=== PATIENT | male | born 1990 | race Caucasian/White ===

== ENCOUNTER 2020-10-17 17:28 | Emergency (ER) | payer MEDICAID, OTHER ==
[~2020-10-17] VITALS: Ht 175.3 cm; Wt 63.0 kg
[2020-10-17 17:58] VITALS: BP 115/72
[2020-10-17 18:59] LABS: CLARITY,URINE CLEAR (Clear); COLOR,URINE YELLOW (Yellow); GLUCOSE, URINE NEGATIVE (Neg); KETONES,URINE TRACE mg/dl (Neg); LEUKOCYTE ESTERASE ,URINE TRACE (Neg); NITRITES, URINE NEGATIVE (Neg); OCCULT BLOOD,URINE NEGATIVE (Neg); PH,URINE 6.5 (4.8-8.0); PROTEIN,URINE 30 mg/dl (Neg)
[2020-10-17 19:09] LABS: UA COLLECTION TYPE CLN CATCH MIDSTREAM
[2020-10-17 19:10] LABS: BACTERIA,URINE NONE SEEN /HPF (Neg); RBC,URINE NONE SEEN /HPF (0-2); WBC,URINE 0-4 /HPF (0-4)
[2020-10-17 19:11] LABS: MUCUS STRANDS MODERATE /LPF (Neg); SQUAMOUS EPITHELIAL CELL,UR FEW /LPF (FEW)
== END 2020-10-17 21:35 | disposition left against medical advice (07) ==
LOC: ER 17:28
DX: N48.89 Other specified disorders of penis (principal); Z53.21 Procedure and treatment not carried out due to patient leaving prior to being seen by health care provider
CPT/HCPCS: 81001; 87088

== ENCOUNTER 2020-10-17 21:45 | Emergency (ER) | payer MEDICAID ==
[~2020-10-17] VITALS: Ht 175.3 cm; Wt 70.0 kg
[2020-10-17 22:05] VITALS: BP 132/75
== END 2020-10-18 02:53 | disposition left against medical advice (07) ==
LOC: ER 21:46
DX: N48.29 Other inflammatory disorders of penis (principal); Z53.21 Procedure and treatment not carried out due to patient leaving prior to being seen by health care provider

== ENCOUNTER 2020-10-18 14:55 | Emergency (ER) | payer MEDICAID ==
[~2020-10-18] VITALS: Ht 175.3 cm; Wt 51.6 kg
[2020-10-18 15:08] VITALS: BP 107/59
[2020-10-18] MEDS ORDERED: CefTRIAXone 1000mg IM Kit (w/lidocaine diluent) IM STA (16:59)
[2020-10-18] MEDS ORDERED: azithromycin 250mg tablet PO ONE (17:00)
[2020-10-18 18:48] LABS: CLARITY,URINE SLIGHTLY CLOUDY (Clear); COLOR,URINE AMBER (Yellow); GLUCOSE, URINE NEGATIVE (Neg); KETONES,URINE 40 mg/dl (Neg); LEUKOCYTE ESTERASE ,URINE NEGATIVE (Neg); NITRITES, URINE NEGATIVE (Neg); OCCULT BLOOD,URINE NEGATIVE (Neg); PROTEIN,URINE TRACE mg/dl (Neg); UROBILINOGEN,URINE >=8.0 E.U/dL (0.2-1.0)
[2020-10-18 18:56] LABS: UA COLLECTION TYPE VOIDED
[2020-10-18 19:06] LABS: BACTERIA,URINE NONE SEEN /HPF (Neg); MUCUS STRANDS MODERATE /LPF (Neg); RBC,URINE NONE SEEN /HPF (0-2); SQUAMOUS EPITHELIAL CELL,UR FEW /LPF (FEW); WBC,URINE 0-4 /HPF (0-4)
== END 2020-10-18 17:39 | disposition home or self-care (01) ==
LOC: ER 14:57
DX: L25.9 Unspecified contact dermatitis, unspecified cause (principal); F12.90 Cannabis use, unspecified, uncomplicated; F15.90 Other stimulant use, unspecified, uncomplicated; Z72.89 Other problems related to lifestyle; Z56.0 Unemployment, unspecified; Z88.5 Allergy status to narcotic agent
CPT/HCPCS: 36415; 81001; 87491; 87591; 96372; 99283; J0696

== ENCOUNTER 2021-06-29 19:43 | Emergency (ER) | payer MEDICAID ==
[~2021-06-29] VITALS: Ht 167.6 cm; Wt 65.9 kg
--- NOTE | 2021-06-29 20:55 | NUR ---
Pt pink, alert. Bed in lowest position, wheels locked, rail 2/2 up. Will continue to monitor pt for acute changes and needs. Pt laying supine, able to reposition self prn.
[2021-06-29] MEDS ORDERED: amox tr/potassium clavulanate 875/125mg TAB PO ONE (22:25)
[2021-06-29] MEDS ORDERED: bacitracin 15gm ointment TP ONE (22:25)
[2021-06-29] MEDS ORDERED: acetaminophen 325mg tablet PO ONE (22:25)
[2021-06-29] MEDS ORDERED: ondansetron 4mg rapidly disintigrating tab PO ONE (22:25)
[2021-06-29] MEDS ORDERED: AMOX-419 PO (22:28)
[2021-06-29 22:43] VITALS: BP 124/82
== END 2021-06-29 22:45 ==
LOC: ER 19:43
DX: S51.031A Puncture wound without foreign body of right elbow, initial encounter (principal); F12.90 Cannabis use, unspecified, uncomplicated; F15.90 Other stimulant use, unspecified, uncomplicated; Z56.0 Unemployment, unspecified; Z88.5 Allergy status to narcotic agent; Z79.2 Long term (current) use of antibiotics; Z72.89 Other problems related to lifestyle; W54.0XXA Bitten by dog, initial encounter; Y93.89 Activity, other specified; Y92.89 Other specified places as the place of occurrence of the external cause; Y99.8 Other external cause status
CPT/HCPCS: 73080; 99284

== ENCOUNTER → 2021-10-12 | Emergency (ER) | payer MEDICAID, OTHER ==
[~2021-10-12] VITALS: Ht 175.3 cm; Wt 68.0 kg
[~2021-10-12] MED LIST: ondansetron 4mg rapidly disintigrating tab PO ONE
[2021-10-12 10:59] VITALS: BP 137/96
== END | disposition home or self-care (01) ==
LOC: EEVIPCON 07:49 → ER 07:49
DX: S02.40FA Zygomatic fracture, left side, initial encounter for closed fracture (principal); F12.10 Cannabis abuse, uncomplicated; F15.10 Other stimulant abuse, uncomplicated; Z56.0 Unemployment, unspecified; Z88.5 Allergy status to narcotic agent
CPT/HCPCS: 70450; 70486; 72125; 99284; L0172

== ENCOUNTER 2024-04-17 10:31 | Emergency (ER) | payer MEDICAID, OTHER ==
[~2024-04-17] VITALS: Ht 175.3 cm; Wt 77.5 kg
[2024-04-17 11:04] LABS: BILIRUBIN,URINE NEGATIVE (Neg); CLARITY,URINE CLEAR (Clear); COLOR,URINE YELLOW (Yellow); GLUCOSE, URINE NEGATIVE (Neg); KETONES,URINE TRACE mg/dl (Neg); LEUKOCYTE ESTERASE ,URINE NEGATIVE (Neg); NITRITES, URINE NEGATIVE (Neg); OCCULT BLOOD,URINE NEGATIVE (Neg); PROTEIN,URINE NEGATIVE (Neg)
[2024-04-17 11:12] LABS: UA COLLECTION TYPE CLN CATCH MIDSTREAM
[2024-04-17 11:40] LABS: BASOPHILS % (AUTO) 0.3 % (0-1); EOSINOPHILS % (AUTO) 0.5 % (0-6); HEMOGLOBIN 14.9 g/dl (14.0-17.9); LYMPHOCYTES # (AUTO) 1.4 X10'3 (1.1-4.8); LYMPHOCYTES % (AUTO) 34.9 % (21-51); MEAN CORPUSCULAR HEMOGLOBIN 30.3 PG (27.0-31.0); MEAN CORPUSCULAR HGB CONC 34.6 g/dL (33.0-36.5); MEAN CORPUSCULAR VOLUME 87.4 FL (78-98); MEAN PLATELET VOLUME 7.2 FL (7.4-10.4); MONOCYTES # (AUTO) 0.3 X10'3 (0-0.9); MONOCYTES % (AUTO) 6.5 % (2-12); NEUTROPHILS # (AUTO) 2.2 X10'3 (1.8-7.7); NEUTROPHILS % (AUTO) 57.8 % (42-75); PLATELET COUNT 318 X10'3 (140-440); RED BLOOD COUNT 4.92 X10'6 (4.70-6.10); RED CELL DISTRIBUTION WIDTH 12.9 % (11.5-14.5); WHITE BLOOD COUNT 3.9 X10'3 (4.5-11.0)
[2024-04-17 11:54] LABS: ALANINE AMINOTRANSFERASE 28 U/L (12-78); ALBUMIN 4.5 G/DL (3.4-5.0); ALBUMIN/GLOBULIN RATIO 1.1 (1.1-1.5); ALKALINE PHOSPHATASE 128 IU/L (46-116); ANION GAP 6 (8-16); ASPARTATE AMINO TRANSFERASE 12 U/L (10-37); BILIRUBIN,TOTAL 0.7 MG/DL (0.1-1.0); BLOOD UREA NITROGEN 19 MG/DL (7-18); BUN/CREATININE RATIO 27.5 (10.0-20.0); CALCIUM 9.4 MG/DL (8.5-10.1); CHLORIDE 103 MMOL/L (99-107); CREATININE 0.69 MG/DL (0.60-1.10); GLUCOSE 117 MG/DL (70-104); LIPASE 18 U/L (16-77); POTASSIUM 3.6 MMOL/L (3.5-5.1); SODIUM 141 MMOL/L (135-145); TOTAL CARBON DIOXIDE 32.5 MMOL/L (24-32); TOTAL PROTEIN 8.5 G/DL (6.4-8.2); eCRCL 154 ML/MIN; eGFR > 90 ML/MIN
[2024-04-17] MEDS: ondansetron 4mg rapidly disintigrating tab PO ONE (11:58)
[2024-04-17] MEDS ORDERED: ONDA-103 PO (13:02)
[2024-04-17 13:12] VITALS: BP 137/80; PULSE 69; RESP 15; TEMP 97.9; O2SAT 97
== END 2024-04-17 13:16 | disposition home or self-care (01) ==
LOC: ER 10:31
DX: R11.2 Nausea with vomiting, unspecified (principal); F12.90 Cannabis use, unspecified, uncomplicated; F15.90 Other stimulant use, unspecified, uncomplicated; Z72.89 Other problems related to lifestyle; Z56.0 Unemployment, unspecified; Z88.5 Allergy status to narcotic agent
CPT/HCPCS: 36415; 80053; 81003; 83690; 85025; 99283

== ENCOUNTER 2024-08-10 14:38 | Emergency (ER) | payer MEDICAID ==
[~2024-08-10] VITALS: Ht 175.3 cm; Wt 68.2 kg
[~2024-08-10 14:38] MED LIST changes: +ONDA-103 PO; -ondansetron 4mg rapidly disintigrating tab PO ONE
--- NOTE | 2024-08-10 14:58 | Physician Documentation ---
History of Present Illness ~ Chief Complaint: Bite-insect Stated Complaint: HAND INFECTION Time Seen by MD: 16:00 Primary Medical Doctor: NONE HPI Adult male presents to the ED with a complaint of some sort of insect bite since 11:00 a.m. today. Patient states the swelling of his left hand seems to be getting worse and increased pain and patient now has some nausea but no vomiting or diarrhea or abdominal pain. Patient denies fevers or chills. Patient has no other concern or complaint at this time. Tetanus within 5 years?: Yes Medication Reconciliation Allergies: Coded Allergies: morphine (Unverified Allergy, Unknown, 11/06/16) Scheduled Sulfamethoxazole/Trimethoprim (Bactrim Ds Tablet), 1 TAB PO Q12H Scheduled PRN Ondansetron HCl (Ondansetron HCl), 1 TAB PO TID PRN for nausea/vomiting Past Medical History Past Medical History: No Pertinent History, *MUSCULOSKELETAL* Past Surgical History: no surgical history Alcohol Use: Occasionally Drug Use: marijuana, methamphetamine Lives with: Spouse Lives In: Home Occupation: unemployed Review of Systems Constitutional: Denies: chills, fever, weakness Eyes: Denies: pain, blurred vision ENT: Denies: ear pain, nose pain, throat pain, mouth pain Respiratory: Denies: cough, shortness of breath Cardiovascular: Denies: chest pain, palpitations Gastrointestinal: Denies: abdominal pain, nausea, vomiting Genitourinary: Denies: burning, dysuria Male Genitalia: Denies: penile discharge, testicular pain Neurological: Denies: headache, dizziness Musculoskeletal: Denies: pain, swelling Integumentary: Denies: rash, lesions Allergic/Immunologic: Denies: hives, itching Hematologic/Lymphatic: Denies: no symptoms reported Psychiatric: Denies: depression, anxiety Physical Exam Vital Signs: Temperature: 99.3, Heart Rate: 100, Respiratory Rate: 17, BP: 132/77, Pulse Oximetry: 99, Weight: 68.180 Oxygen Flow Rate: 0 Physical Exam General: Awake and Alert, no acute distress. HEENT: Conjunctiva pink, Sclera clear, Mucus Membranes moist. Neck: Supple without masses and tenderness. Resp: Unlabored. Lungs clear to auscultation bilaterally. Heart: Regular Rate and rhythm, normal S1 and S2 without murmur, rub or gallop. Musculoskeletal: Patient on exam does have swelling of the dorsum of his left hand with a small pustule over the 2nd MCP joint. Patient has significant tenderness to palpation surrounding the dorsum of the left hand. I do not appreciate any red streaking up his left arm currently. There is no significant purulent drainage from pustule over left 2nd MCP joint. Motor function is intact, patient is neurovascularly intact distally of the left upper extremity. Extremities: No cyanosis,clubbing or edema. Skin: Warm and Dry. Progress Results/Orders Results/Orders Completed Orders - KELSEY MOHR Ketorolac Trometh 30mg/Ml Vial (Toradol (08/10/24 16:31) Sulfamethox/Trimetho. Ds Tab (Septra Ds (08/10/24 16:31) Medications Received in ER Medications (Trade) Dose Ordered Sig/Viktoria Route PRN Reason Start Time Stop Time Status Last Admin Dose Admin (Toradol inj. 30mg/ml) 30 mg ONCE STAT IM 08/10/24 16:31 08/10/24 16:36 DC 08/10/24 16:44 30 MG (Septra DS tab) 1 tab ONCE STAT PO 08/10/24 16:31 08/10/24 16:36 DC 08/10/24 16:45 1 TAB Vital Signs 08/10/24 08/10/24 14:49 16:48 Temp 99.3 103.1 Pulse 100 110 Resp 17 22 B/P (MAP) 132/77 130/79 (96) Pulse Ox 99 97 O2 Flow Rate 0 0 Laboratory Tests Test 08/10/24 16:36 White Blood Count 14.9 H Red Blood Count 4.63 L Hemoglobin 14.0 Hematocrit 40.9 L Mean Corpuscular Volume 88.4 Mean Corpuscular Hemoglobin 30.2 Mean Corpuscular Hemoglobin Concent 34.2 Red Cell Distribution Width 14.0 Platelet Count 432 Mean Platelet Volume 6.5 L Neutrophils (%) (Auto) 86.1 H Lymphocytes (%) (Auto) 6.6 L Monocytes (%) (Auto) 7.0 Eosinophils (%) (Auto) 0.1 Basophils (%) (Auto) 0.2 Neutrophils # (Auto) 12.8 H Lymphocytes # (Auto) 1.0 L Monocytes # (Auto) 1.0 H Eosinophils # (Auto) 0.0 Basophils # (Auto) 0.0 CBC Comment Sodium Level 134 L Potassium Level 3.6 Chloride Level 100 Carbon Dioxide Level 22.5 L Anion Gap 12 Blood Urea Nitrogen 19 H Creatinine 0.68 Estimated GFR/1.73 m2 > 90 BUN/Creatinine Ratio 27.9 H Glucose Level 99 Lactic Acid Level 1.1 Calcium Level 8.7 Albumin 3.7 Procalcitonin < 0.05 Chemistry Comments Medical Decision Making Findings Adult male presents to the ED with a complaint of some sort of insect bite since 11:00 a.m. today. Patient states the swelling of his left hand seems to be ge tting worse and increased pain and patient now has some nausea but no vomiting or diarrhea or abdominal pain. Patient denies fevers or chills. Patient has no other concern or complaint at this time. Patient's labs did indicate elevated white count, but were otherwise largely unremarkable with lactic acid level being within normal limits. Toradol 30 mg IM administered in the ED tonight along with Bactrim DS one tab by mouth given in ED tonight. Prescription of Bactrim sent to patient pharmacy [facility] [address] just a few minute walk from the hospital. Patient voiced understanding. Patient will take antibiotic as prescribed. Patient will follow up in two days for wound check. Return to ED with any worsening, concerning or changing symptoms. Departure Disposition: 01 HOME / SELF CARE / HOMELESS Impression: Primary Impression: Cellulitis Qualified Codes: L03.114 - Cellulitis of left upper limb Discharge Instructions: Cellulitis, Adult Additional Instructions: Patient's labs did indicate elevated white count, but were otherwise largely unremarkable with lactic acid level being within normal limits. Toradol 30 mg IM administered in the ED tonight along with Bactrim DS one tab by mouth given in ED tonight. Prescription of Bactrim sent to patient pharmacy [facility] [address] just a few minute walk from the hospital. Patient voiced understanding. Patient will take antibiotic as prescribed. Patient will follow up in two days for wound check. Return to ED with any worsening, concerning or changing symptoms. Referrals: NO PRIMARY CARE PROVIDER (PCP) Prescriptions Sulfamethoxazole/Trimethoprim (Bactrim Ds Tablet) 800 Mg-160 Mg Tablet 1 TAB PO Q12H for 10 Days, #20 TAB Prov: KELSEY MOHR 08/10/24 Signature Scribe Signature: No scribe Attestation: No scribe DWAIN MARSHALL NP August 10, 2024 14:58 KELSEY MOHR [facility] August 10, 2024 16:36
[2024-08-10] MEDS ORDERED: SULF1TAB49 PO (16:37)
[2024-08-10] MEDS: ketorolac trometh 30MG/ML vial 30 MG/ML VIAL IM STA (16:44)
[2024-08-10 16:45] LABS: BASOPHILS % (AUTO) 0.2 % (0-1); EOSINOPHILS % (AUTO) 0.1 % (0-6); HEMATOCRIT 40.9 % (42.0-52.0); LYMPHOCYTES % (AUTO) 6.6 % (21-51); MEAN CORPUSCULAR HEMOGLOBIN 30.2 PG (27.0-31.0); MEAN CORPUSCULAR HGB CONC 34.2 g/dL (33.0-36.5); MEAN CORPUSCULAR VOLUME 88.4 FL (78-98); MEAN PLATELET VOLUME 6.5 FL (7.4-10.4); NEUTROPHILS # (AUTO) 12.8 X10'3 (1.8-7.7); NEUTROPHILS % (AUTO) 86.1 % (42-75); PLATELET COUNT 432 X10'3 (140-440); RED BLOOD COUNT 4.63 X10'6 (4.70-6.10); WHITE BLOOD COUNT 14.9 X10'3 (4.5-11.0)
[2024-08-10] MEDS: sulfamethoxazole/trimethoprim DS (800/160mg) tablet PO STA (16:45)
[2024-08-10 17:04] LABS: ALBUMIN 3.7 G/DL (3.4-5.0); ANION GAP 12 (8-16); BLOOD UREA NITROGEN 19 MG/DL (7-18); BUN/CREATININE RATIO 27.9 (10.0-20.0); CALCIUM 8.7 MG/DL (8.5-10.1); CHLORIDE 100 MMOL/L (99-107); CREATININE 0.68 MG/DL (0.60-1.10); GLUCOSE 99 MG/DL (70-104); POTASSIUM 3.6 MMOL/L (3.5-5.1); SODIUM 134 MMOL/L (135-145); TOTAL CARBON DIOXIDE 22.5 MMOL/L (24-32); eCRCL 150 ML/MIN; eGFR > 90 ML/MIN
[2024-08-10 18:03] VITALS: BP 130/79; PULSE 111; RESP 16; TEMP 100.8; O2SAT 100
== END 2024-08-10 18:04 | disposition home or self-care (01) ==
LOC: ER 14:39
DX: L03.114 Cellulitis of left upper limb (principal); F12.90 Cannabis use, unspecified, uncomplicated; F15.90 Other stimulant use, unspecified, uncomplicated; Z88.5 Allergy status to narcotic agent; Z79.899 Other long term (current) drug therapy; Z56.0 Unemployment, unspecified; Z72.89 Other problems related to lifestyle
CPT/HCPCS: 36415; 80048; 83605; 84145; 85025; 87040; 96372; 99283; J1885

== ENCOUNTER 2024-09-13 16:27 | Emergency (ER) | payer MEDICAID ==
[~2024-09-13] VITALS: Ht 175.3 cm; Wt 57.5 kg
[2024-09-13 16:35] VITALS: TEMP 97
--- NOTE | 2024-09-13 20:19 | Physician Documentation ---
History of Present Illness ~ Chief Complaint: Constipation Stated Complaint: ABD PAIN Time Seen by MD: 20:18 Primary Medical Doctor: NONE Mode of Arrival: POV HPI Patient presents to the emergency room with chief complaint of constipation. He states he has been able to use the bathroom in two days and he attributes this to opioid use. He states that has use some milk of magnesia and other [id number] remedies without relief. He has taken nothing for his discomfort. No prior instances. Medication Reconciliation Allergies: Coded Allergies: morphine (Unverified Allergy, Unknown, 11/06/16) Scheduled PRN Ondansetron HCl (Ondansetron HCl), 1 TAB PO TID PRN for nausea/vomiting Past Medical History Past Medical History: No Pertinent History, *MUSCULOSKELETAL* Past Surgical History: no surgical history Alcohol Use: Occasionally Drug Use: marijuana, methamphetamine Lives with: Spouse Lives In: Home Occupation: unemployed Review of Systems ROS All review of systems negative except as per HPI Physical Exam Vital Signs: Temperature: 97.0, Source: Temporal, Heart Rate: 131, Respiratory Rate: 18, BP: 123/77, Pulse Oximetry: 95, Weight: 57.450 Physical Exam General: Patient is awake, alert, oriented x4 in no acute distress and well appearing.~ Head: Normocephalic and atraumatic. Eyes: Conjunctival normal. EOMI. PERRL. ENT: Mucous membranes moist. Neck: Supple, trachea is midline. Chest: Clear to auscultation bilaterally without rales, rhonchi, or wheezes. There is no accessory muscle use or retractions. Cardiac: Tachycardic and regular without murmurs, gallops, or rubs. Abd: Soft, nondistended, diffuse tenderness to palpation without peritonitis Progress Results/Orders Results/Orders Orders - VISH READ MD Abdomen,Single View(Kub) (09/13/24 20:31) Saline Lock (09/13/24 20:24) Nothing By Mouth (09/14/24 Dinner) Ct Abdomen Pelvis (09/13/24 21:34) Methylnaltrexone Br Inj (Relistor Inj (09/13/24 23:40) Bisacodyl Delayed-Release Tab (Dulcolax (09/13/24 23:40) Acetaminophen 325mg Tablet (Tylenol Tabl (09/13/24 23:40) Completed Orders - VISH READ MD Abdomen,Single View(Kub) (09/13/24 20:31) Ketorolac Trometh 15mg/Ml Vial (Toradol (09/13/24 20:25) Dicyclomine Capsule (Bentyl Capsule) (09/13/24 20:25) CMP (09/13/24 20:24) Cbc/Diff (09/13/24 20:24) Lipase (09/13/24 20:24) Hs Troponin I W Calculations (09/13/24 20:24) Procalcitonin (09/13/24 20:24) Drug Screen, Urine (09/13/24 20:25) Normal Saline 1000ml (Sodium Chloride 10 (09/13/24 20:30) Ketorolac Trometh 15mg/Ml Vial (Toradol (09/13/24 20:30) Ct Abdomen Pelvis (09/13/24 21:34) Ua W/Microscopic, Cult If Ind (09/13/24 21:43) Medications Received in ER Medications (Trade) Dose Ordered Sig/Viktoria Route PRN Reason Start Time Stop Time Status Last Admin Dose Admin (Bentyl capsule) 20 mg ONCE ONCE PO 09/13/24 20:25 09/13/24 20:26 DC 09/13/24 20:55 20 MG Sodium Chloride 1,000 ml @ 1,000 mls/hr ONCE ONCE IV 09/13/24 20:30 09/13/24 21:29 DC 09/13/24 20:56 1,000 MLS/HR (Toradol injection) 15 mg ONCE ONCE IV 09/13/24 20:30 09/13/24 20:31 DC 09/13/24 20:54 15 MG Vital Signs 09/13/24 09/13/24 09/13/24 09/13/24 16:35 18:10 18:43 20:54 Temp 97.0 Pulse 131 Resp 15 18 18 B/P (MAP) 123/77 Pulse Ox 95 09/13/24 09/13/24 21:01 23:19 Pulse 111 Resp 18 16 B/P (MAP) 124/77 (93) Pulse Ox 96 Laboratory Tests Test 09/13/24 20:33 09/13/24 21:43 White Blood Count 9.2 Red Blood Count 3.62 L Hemoglobin 10.9 L Hematocrit 31.3 L Mean Corpuscular Volume 86.4 Mean Corpuscular Hemoglobin 30.2 Mean Corpuscular Hemoglobin Concent 35.0 Red Cell Distribution Width 14.8 H Platelet Count 736 H Mean Platelet Volume 5.7 L Neutrophils (%) (Auto) 72.0 Lymphocytes (%) (Auto) 13.2 L Monocytes (%) (Auto) 14.1 H Eosinophils (%) (Auto) 0 Basophils (%) (Auto) 0.7 Neutrophils # (Auto) 6.6 Lymphocytes # (Auto) 1.2 Monocytes # (Auto) 1.3 H Eosinophils # (Auto) 0.0 Basophils # (Auto) 0.1 CBC Comment Sodium Level 136 Potassium Level 4.1 Chloride Level 99 Carbon Dioxide Level 28.1 Anion Gap 9 Blood Urea Nitrogen 18 Creatinine 0.75 Estimated GFR/1.73 m2 > 90 BUN/Creatinine Ratio 24.0 H Glucose Level 112 H Calcium Level 8.9 Total Bilirubin 0.4 Aspartate Amino Transf (AST/SGOT) 22 Alanine Aminotransferase (ALT/SGPT) 22 Alkaline Phosphatase 93 Troponin I High Sensitivity 6 Total Protein 8.0 Albumin 2.5 L Globulin 5.5 H Albumin/Globulin Ratio 0.5 L Lipase 19 Procalcitonin 0.09 Chemistry Comments Urine Specimen Description Cln catch midstream Urine Color Yellow Urine Clarity Cloudy Urine pH 7.5 Urine Specific Elbe 1.015 Urine Protein Negative Urine Glucose (UA) Negative Urine Ketones Trace H Urine Occult Blood Negative Urine Nitrite Negative Urine Bilirubin Negative Urine Urobilinogen 0.2 Urine Leukocyte Esterase Negative Urine RBC 0-2 Urine WBC 0-4 Urine Squamous Epithelial Cells Few Urine Transitional Epithelial Cells Few Urine Amorphous Phosphates 2+ Urine Bacteria None seen Urine Culture Indicated Not ind Volume Urine Centrifuged 10 ml Urine Comment Urine Opiates Screen Negative Urine Methadone Screen Negative Urine Fentanyl Screen Negative Urine Barbiturates Screen Negative Urine Phencyclidine Screen Negative Urine Amphetamines Screen Positive Urine Benzodiazepines Screen Negative Urine Cocaine Screen Negative Urine Cannabinoids Screen Positive Drug Screen Comment Medical Decision Making Diff Dx Pain:Considerations: Include: Angina/DC, Cholangitis, Cholecystitis, Cholelithasis, Constipation, Diverticular disease, Gastritis, GI hemorrhage, Inflammatory BD, Mass, Pancreatitis, Trauma, intraabdominal, Urinary obstruction, Urinary tract infection Departure Disposition: HOME / SELF CARE / HOMELESS Impression: Primary Impression: Constipation Condition: Stable Discharge Instructions: Constipation, Adult Referrals: NO PRIMARY CARE PROVIDER (PCP) Prescriptions Polyethylene Glycol 3350 (Miralax) 17 Gram/Dose Powder 17 GM PO DAILY for constipation, #527 GM 0 Refills dissolve in water Prov: VISH READ MD 09/13/24 Bisacodyl (Dulcolax) 5 Mg Tablet.dr 4 TAB PO ONCE for constipation for 1 Day, #4 TAB 0 Refills Prov: VISH READ MD 09/13/24 Education Educated: Patient Educated regarding: diagnosis, treatment, need for follow up Signature Scribe Signature: No scribe Attestation: The note accurately reflects work and decisions made by me.Vish Read MD 09/13/24 23:43 VISH READ MD Sep 13, 2024 20:18
[2024-09-13] MEDS ORDERED: ketorolac trometh 15mg/ml vial 15 MG/ML ML IM ONE (20:25)
[2024-09-13 20:45] LABS: RED CELL DISTRIBUTION WIDTH 14.8 % (11.5-14.5)
[2024-09-13 20:47] LABS: MEAN PLATELET VOLUME 5.7 FL (7.4-10.4)
[2024-09-13] MEDS: ketorolac trometh 15mg/ml vial 15 MG/ML ML IV ONE (20:54)
[2024-09-13] MEDS: normal saline 1000ml 1,000 ML IV ONE (20:56)
[2024-09-13 20:57] LABS: CREATININE 0.75 MG/DL (0.60-1.10); TOTAL CARBON DIOXIDE 28.1 MMOL/L (24-32); eCRCL 115 ML/MIN; eGFR > 90 ML/MIN
--- NOTE | 2024-09-13 21:25 | RADIOLOGY REPORT ---
Exam: DI ABDOMEN,SINGLE VIEW(KUB) Indication: possible obstruction Comparison: None Technique: 3 radiographic views of the abdomen. Findings: No free air beneath the hemidiaphragms. Mild gas distention of the colon. Scattered gas throughout n ondilated small and large bowel. Overlying soft tissues are intact. No radiopaque foreign body. Lung bases are clear. Osseous structures are grossly intact. Impression: No bowel obstruction or free intraperitoneal air.
[2024-09-13 21:55] LABS: LEUKOCYTE ESTERASE ,URINE NEGATIVE (Neg); NITRITES, URINE NEGATIVE (Neg); OCCULT BLOOD,URINE NEGATIVE (Neg)
[2024-09-13 21:56] LABS: UA COLLECTION TYPE CLN CATCH MIDSTREAM
[2024-09-13 22:04] LABS: SQUAMOUS EPITHELIAL CELL,UR FEW /LPF (FEW)
[2024-09-13 22:05] LABS: AMORPHOUS PHOSPHATES 2+; URINE AMPHETAMINE SCREEN POSITIVE (Neg); URINE BARBITUATE SCREEN NEGATIVE (Neg); URINE BENZODIAZEPINES SCREEN NEGATIVE (Neg); URINE CANNABINOID SCREEN POSITIVE (Neg); URINE COCAINE SCREEN NEGATIVE (Neg); URINE METHADONE SCREEN NEGATIVE (Neg); URINE OPIATE SCREEN NEGATIVE (Neg); URINE PHENCYCLIDINE SCREEN NEGATIVE (Neg)
--- NOTE | 2024-09-13 23:31 | RADIOLOGY REPORT ---
Exam: CT CT ABDOMEN PELVIS History: abd pain Comparison Study: None Technique: Multidetector spiral CT of the abdomen was performed from lung bases to pubic symphysis. I maging was performed without IV contrast. Axial, coronal and sagittal multiplanar reformats were obta ined from the axial data set by the technologist. Radiation Dose : 1. Abdomen/Pelvis: CTDIvol 13.38 mGy, DLP 690.6 mGy*cm. Findings: Evaluation of solid organs is limited due to lack of intravenous contrast use. Lung Bases: No acute or significant lung base finding. Normal heart size. No pleural or pericardial effusion. Liver: The liver is normal in size. No focal lesions. Gallbladder and Biliary Tree: Unremarkable Spleen: Unremarkable Pancreas: The pancreas is grossly normal in appearance. Adrenal Glands: Unremarkable Kidneys: Kidneys are grossly normal without calculi or hydronephrosis. Bladder: Grossly unremarkable for degree of distention. Bowel: The stomach is grossly normal in appearance. Markedly dilated stool and gas-filled colon measu ring up to approximately 6.1 cm proximally. Diffusely increased colonic wall and haustral thickening and edema is also suggestive of colitis. The appendix normal. Ascites: Absent Lymphadenopathy: No mesenteric, retroperitoneal or periportal lymphadenopathy. Abdominal Wall and Mesentery: Unremarkable. Vasculature: The visualized abdominal aorta is normal in size and caliber. Evaluation of abdominal a nd pelvic vessels is limited due to lack of intravenous contrast. Pelvic Organs: Unremarkable Musculoskeletal: No aggressive focal bony lesions, acute fractures or dislocation. IMPRESSION: 1. Markedly dilated stool and gas-filled: With diffusely increased colonic wall and haustral thickeni ng and edema suggestive of colitis and retained stool in pattern of constipation. Radiation optimization: All CT scans at this facility use at least one of these dose optimization mario hniques: automated exposure control mA and/or kV adjustment per patient size (includes targeted exam s where dose is matched to clinical indication) or iterative reconstruction.
[2024-09-13] MEDS ORDERED: POLY119P2 PO (23:43)
[2024-09-13] MEDS ORDERED: BISA-78 PO (23:43)
[2024-09-13] MEDS: bisacodyl 5mg tablet.DR PO ONE (23:50)
[2024-09-13] MEDS: methylnaltrexone br 12mg/0.6ml inj***SubQ only SQ ONE (23:54)
[2024-09-14 00:14] VITALS: BP 105/72; PULSE 88; RESP 16; O2SAT 96
== END 2024-09-14 00:15 | disposition home or self-care (01) ==
LOC: ER 16:28
DX: K59.00 Constipation, unspecified (principal); F12.90 Cannabis use, unspecified, uncomplicated; F15.90 Other stimulant use, unspecified, uncomplicated; Z88.5 Allergy status to narcotic agent; Z79.899 Other long term (current) drug therapy
CPT/HCPCS: 36415; 74018; 74176; 80053; 80305; 81001; 83690; 84145; 84484; 85025; 96361; 96372; 96374; 99285; J1885; J2212; J7030

== ENCOUNTER 2024-11-13 14:08 | Emergency (ER) | payer MEDICAID ==
[~2024-11-13] VITALS: Ht 175.3 cm; Wt 51.7 kg
[~2024-11-13 14:08] MED LIST changes: +BISA-78 PO; +POLY119P2 PO
[2024-11-13 14:23] VITALS: BP 127/74; PULSE 99; O2SAT 98
--- NOTE | 2024-11-13 15:02 | RADIOLOGY REPORT ---
EXAM: DI KNEE, COMP 4 VW MIN, DI KNEE, COMP 4 VW MIN REASON FOR EXAM: KNEE PAIN TECHNIQUE: AP, lateral, and oblique views of both knees are submitted for review. COMPARISON: None FINDINGS: The bones demonstrate normal mineralization. There is small right knee effusion. There is no significant left knee effusion. The joint spaces are grossly maintained. There is no acute fractur e or dislocation. The soft tissues are unremarkable. IMPRESSION: No acute fracture or dislocation. Small right knee effusion.
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
[2024-11-13 15:45] VITALS: RESP 16
[2024-11-13] MEDS: ketorolac trometh 30MG/ML vial 30 MG/ML VIAL IM ONE (15:45)
[2024-11-13 15:51] VITALS: TEMP 98.2
== END 2024-11-13 15:52 | disposition home or self-care (01) ==
LOC: ER 14:09
DX: S80.212A Abrasion, left knee, initial encounter (principal); S80.211A Abrasion, right knee, initial encounter; F17.200 Nicotine dependence, unspecified, uncomplicated; F12.90 Cannabis use, unspecified, uncomplicated; Z59.00 Homelessness unspecified; Z79.899 Other long term (current) drug therapy; Z72.89 Other problems related to lifestyle; Z56.0 Unemployment, unspecified; V19.40XA Pedal cycle driver injured in collision with unspecified motor vehicles in traffic accident, initial encounter; Y93.55 Activity, bike riding; Y92.89 Other specified places as the place of occurrence of the external cause; Y99.8 Other external cause status
CPT/HCPCS: 73564; 96372; 99284; J1885; A6449

== ENCOUNTER 2024-11-15 06:27 | Emergency (ER) | payer MEDICAID ==
[~2024-11-15] VITALS: Ht 175.3 cm; Wt 57.9 kg
[2024-11-15 06:30] VITALS: BP 124/85; PULSE 87; RESP 18; TEMP 97.5; O2SAT 100
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
== END 2024-11-15 07:41 | disposition home or self-care (01) ==
LOC: ER 06:27
DX: S80.812D Abrasion, left lower leg, subsequent encounter (principal); S80.811D Abrasion, right lower leg, subsequent encounter; R45.1 Restlessness and agitation; F15.10 Other stimulant abuse, uncomplicated; F12.90 Cannabis use, unspecified, uncomplicated; Z59.00 Homelessness unspecified; Z56.0 Unemployment, unspecified; Z72.89 Other problems related to lifestyle; Z79.899 Other long term (current) drug therapy; Z87.891 Personal history of nicotine dependence; V19.40XD Pedal cycle driver injured in collision with unspecified motor vehicles in traffic accident, subsequent encounter
CPT/HCPCS: 99282

== ENCOUNTER 2025-02-08 18:40 | Emergency (ER) | payer MEDICAID ==
[~2025-02-08] VITALS: Ht 177.8 cm; Wt 68.2 kg
--- NOTE | 2025-02-08 19:06 | Physician Documentation ---
History of Present Illness ~ Chief Complaint: Abscess Stated Complaint: NOSE INFECTION Time Seen by MD: 19:49 Primary Medical Doctor: NONE HPI 34-year-old male presents to the ED with a complaint of increased nose pain over the last 3-4 days. States that the pain and swelling in his making it harder for him to breathe through his nose. Says he has general malaise in the feeling of being hot and cold. Denies any establish fevers. Tetanus Within 5 Years: Yes Medication Reconciliation Allergies: Coded Allergies: No Known Allergies (Unverified , 11/13/24) Scheduled Bisacodyl (Dulcolax), 4 TAB PO ONCE Polyethylene Glycol 3350 (Miralax), 17 GM PO DAILY Sulfamethoxazole/Trimethoprim (Septra Ds Tab), 1 TAB PO Q12H Scheduled PRN Ondansetron HCl (Ondansetron HCl), 1 TAB PO TID PRN for nausea/vomiting Past Medical History Past Medical History: *MUSCULOSKELETAL* Past Surgical History: no surgical history Alcohol Use: Occasionally Drug Use: marijuana, methamphetamine Lives with: Spouse Lives In: Homeless Occupation: unemployed Physical Exam Vital Signs: Temperature: 98.0, Heart Rate: 102, Respiratory Rate: 16, BP: 140/87, Pulse Oximetry: 98, Weight: 68.180 Physical Exam General: Alert, no apparent distress. HEENT: PERRL, EOMI, no injection, moist mucous membranes. erytrhema and swelling distal aspect of nose, non-fluctuant Neck: Full range of motion. Respiratory: Lungs clear, no respiratory distress. Chest: No accessory muscle use. Cardiovascular: Regular rate and rhythm, no murmurs. Gastrointestinal: Soft, nontender, nondistended. Bowels sounds present. Extremities: Normal range of motion, no deformity. Neurologic: Oriented x4. Psychiatric: Normal mood and affect. Skin: Normal color, warm and dry. No edema, no ecchymosis. Progress Results/Orders Results/Orders Completed Orders - JONATHAN MARSHALL NP Ceftriaxone Im Kit W/Lidocaine (Rocephin (02/08/25 20:55) Medications Received in ER Medications (Trade) Dose Ordered Sig/Viktoria Route PRN Reason Start Time Stop Time Status Last Admin Dose Admin (Rocephin 1GM IM kit (w/lidocaine diluent)) 1,000 mg ONCE ONCE IM 02/08/25 20:55 02/08/25 20:56 DC 02/08/25 21:20 1,000 MG Vital Signs 02/08/25 02/08/25 18:51 21:25 Temp 98.0 98.0 Pulse 102 102 Resp 16 16 B/P (MAP) 140/87 140/87 Pulse Ox 98 98 Medical Decision Making Additional information obtaine: N/A Findings Patient is hemodynamically stable going to treat him empirically the oral antibiotics as he is continues to meet criteria for outpatient therapy. He would advise him to return if his symptoms worsen Differential Dx:Considerations: Include: Abscess, Bacteremia, Cellulitis, Erysipelas, Felon, Gas gangrene, Hidrademitis suppurativa, Impetigo, Lymphang itis, Osteromyelitis, Paronychia, Septicemia, Other Departure Disposition: HOME / SELF CARE / HOMELESS Impression: Primary Impression: Abscess Additional Impression: Cellulitis Discharge Instructions: Abscess, Care After Referrals: NO PRIMARY CARE PROVIDER (PCP) Prescriptions Sulfamethoxazole/Trimethoprim (Septra Ds Tab) 800 Mg/160 Mg Tablet 1 TAB PO Q12H for 10 Days, #20 TAB Prov: JONATHAN MARSHALL NP 02/08/25 Education Educated: Patient Signature Scribe Signature: g Attestation: Scribed for Jonathan Marshall Contract Administration Coordinator by Jonathan Mercado NP . 02/08/25 23:15 JONATHAN MARSHALL NP Feb 08, 2025 19:06
[2025-02-08] MEDS ORDERED: SULF1TAB45 PO (20:54)
[2025-02-08] MEDS: CefTRIAXone 1000mg IM Kit (w/lidocaine diluent) IM ONE (21:20)
[2025-02-08 21:25] VITALS: BP 140/87; PULSE 102; RESP 16; TEMP 98; O2SAT 98
== END 2025-02-08 21:27 | disposition home or self-care (01) ==
LOC: ER 18:41
DX: J34.0 Abscess, furuncle and carbuncle of nose (principal); F15.90 Other stimulant use, unspecified, uncomplicated; F12.90 Cannabis use, unspecified, uncomplicated; Z79.899 Other long term (current) drug therapy; Z72.89 Other problems related to lifestyle; Z59.00 Homelessness unspecified; Z56.0 Unemployment, unspecified
CPT/HCPCS: 96372; 99283; J0696

== ENCOUNTER 2025-03-03 22:20 | Emergency (ER) | payer MEDICAID, OTHER ==
[~2025-03-03] VITALS: Ht 175.3 cm; Wt 75.0 kg
[2025-03-03 22:53] VITALS: BP 124/83; PULSE 115; RESP 15; O2SAT 98
--- NOTE | 2025-03-03 23:38 | RADIOLOGY REPORT ---
CLINICAL INDICATION: WRIST PAIN TECHNIQUE: WRIST CMPLDI WRIST, COMPLETE (3VW MIN), left COMPARISON: ELBOW, COMPLETE (3VW MIN) on DOS: 06/29/21 FINDINGS/IMPRESSION: : Mildly displaced fracture at the dorsal aspect of the wrist, likely a triquetral fracture.
--- NOTE | 2025-03-03 23:43 | Physician Documentation ---
History of Present Illness ~ Chief Complaint: Wrist pain Stated Complaint: ARM PAIN Time Seen by MD: 22:56 Primary Medical Doctor: NONE HPI 34-year-old male on sheltered presents to the emergency department with a complaint of left wrist pain. Reports that he has had a sore over his left wrist and has been difficult to heal despite taking antibiotics yet developed another one proximal to it. The granulated lesion is on the dorsum side of the left wrist is proximal to the carpal bones. Additionally reports that he fell while skateboarding yesterday injuring the dorsum part of his left hand where he has tenderness to the lateral proximal bones. There is no gross deformity. He is grossly neurologically intact. Tetanus within 5 years: Yes Medication Reconciliation Allergies: Coded Allergies: No Known Allergies (Unverified , 03/03/25) Scheduled Bisacodyl (Dulcolax), 4 TAB PO ONCE Polyethylene Glycol 3350 (Miralax), 17 GM PO DAILY Scheduled PRN Ondansetron HCl (Ondansetron HCl), 1 TAB PO TID PRN for nausea/vomiting Past Medical History Past Medical History: *MUSCULOSKELETAL* Past Surgical History: no surgical history Alcohol Use: Occasionally Drug Use: marijuana, methamphetamine Lives with: Spouse Lives In: Homeless Occupation: unemployed Review of Systems All Other Systems at this time: Reviewed and Negative Musculoskeletal: Reports: see HPI Physical Exam Vital Signs: RN Vital Signs have been reviewed: Yes, Temperature: 97.6, Source: Temporal, Heart Rate: 115, Respiratory Rate: 15, BP: 124/83, Pulse Oximetry: 98, Weight: 75.000 General Appearance: alert, WD/WN EENT: PERRL/EOMI Respiratory: no respiratory distress Chest: no accessory muscle use Cardiovascular: regular rate, rhythm Shoulder: normal inspection Elbow/Forearm: normal inspection Wrist: soft tissue tenderness, other (Erythema and over the dorsum of the wrist. Granulated scab to the distal forearm proximal of the wrist.); No: snuff box tenderness Hand: bone tenderness (over lateral proximal carpal), soft tissue tenderness Nail Bed: normal inspection Distal Function: normal pulse Skin: normal color Skin erythema to distal forearm with granualated abscess Neurologic: oriented x4 Psychiatric: normal mood/affect Progress Results/Orders Results/Orders Orders - SWATI FULTON Doxycycline 100mg Capsule (Vibramycin 10 (03/03/25 23:37) Ibuprofen Tablet (Motrin Tablet) (03/03/25 23:40) Acetaminophen 325mg Tablet (Tylenol Tabl (03/03/25 23:40) Ortho Orders (03/03/25 ) Vital Signs 03/03/25 22:53 Temp 97.6 Pulse 115 Resp 15 B/P (MAP) 124/83 Pulse Ox 98 Medical Decision Making Additional information obtaine: N/A Findings 34 y/o unsheltered male. X-ray imaging if preliminary reviewed by myself shows a displaced fracture of the Triquetrum. Additionally there is erythema with a granulated lesion over the dorsum of the distal wrist proximal to the carpals. Received 1st dose antibiotic in the emergency department and pain medicine and anti-inflammatory medicine. Splint applied which is well fitting and clean and dry. Recommendations are to begin antibiotic and continue with anti- inflammatory and Tylenol. Patient understands the importance of following up with orthopedist for definitive management. No clinical suspicion for septic joint. General Diff Dx:Considerations: Include: Abrasion, Contusion, Fracture, Hematoma, Laceration, Malunion, Neurovascular injury, Open fracture, Sprain, Ulcer, Other Shoulder Diff Dx:Consideration: Include: Other (Noncontributory) Elbow Diff Dx:Considerations: Include: Other (Noncontributory) Wrist Diff Dx:Considerations: Include: Abrasion, Arthritis, DJD, Gout, Rh eumatoid, Septic, Carpal tunnel snydrome, Contusion, Dislocation, Fracture- carpal, Fracture-radius, Fracture-ulna, Ganglion, Laceration, Neurovascular injury, Open fracture, Strain, Other Hand Diff Dx:Considerations: Include: Other Finger Diff Dx:Considerations: Include: Other (Noncontributory) Departure Disposition: HOME / SELF CARE / HOMELESS Impression: Primary Impression: Hand fracture, left Qualified Codes: S62.92XA - Unspecified fracture of left hand, initial encounter for closed fracture Additional Impressions: open abscess of wrist Cellulitis of left wrist Condition: Stable Discharge Instructions: Wrist Pain, Adult Additional Instructions: Tonight in the emergency department or x-rays are consistent with hand fracture. Please keep your splint clean and dry obtain prescriptions and take as directed. Make follow up appointment with local orthopedist for re-evaluation. Thank you for visiting [facility]. Referrals: NO PRIMARY CARE PROVIDER (PCP) LUZ RANDALL Jr., MD 3-4 days 34-year-old male right-hand dominant with a displaced left triquetrum closed fracture. Additionally has cellulitis of the left wrist. Please evaluate. Thank you [facility] ED Prescriptions Ibuprofen* (Motrin*) 400 Mg Tablet 400 MG PO Q6H for 10 Days, #30 TAB Prov: SWATI FULTON 03/03/25 Doxycycline Monohydrate (Doxycycline Monohydrate) 100 Mg Capsule 100 MG PO BID, #20 CAP may sub doxycycline hyclate or azithromycin z-pack as prescribed Prov: SWATI FULTON [facility] 03/03/25 Education Educated: Patient Educated regarding: diagnosis, treatment, prognosis Signature Scribe Signature: . Attestation: . SWATI FULTON [facility] Mar 03, 2025 23:43
[2025-03-03] MEDS ORDERED: DOXY100C43 PO (23:48)
[2025-03-03] MEDS ORDERED: IBUP-1984 PO (23:48)
[2025-03-04] MEDS: ibuprofen tablet 400 MG TABLET PO ONE (00:14)
[2025-03-04] MEDS: DOXYCYCLINE 100MG CAPSULE PO STA (00:14)
[2025-03-04 00:17] VITALS: TEMP 97.6
== END 2025-03-04 00:18 | disposition home or self-care (01) ==
LOC: ER 22:21
DX: S62.92XA Unspecified fracture of left hand, initial encounter for closed fracture (principal); L03.114 Cellulitis of left upper limb; F12.90 Cannabis use, unspecified, uncomplicated; F15.90 Other stimulant use, unspecified, uncomplicated; Z79.899 Other long term (current) drug therapy; Z59.00 Homelessness unspecified; Z56.0 Unemployment, unspecified; Z72.89 Other problems related to lifestyle; V00.131A Fall from skateboard, initial encounter; Y93.51 Activity, roller skating (inline) and skateboarding; Y92.89 Other specified places as the place of occurrence of the external cause; Y99.8 Other external cause status
CPT/HCPCS: 29125; 73110; 99284

== ENCOUNTER 2025-03-07 09:33 | Emergency (ER) | payer OTHER ==
[~2025-03-07] VITALS: Ht 170.2 cm; Wt 74.0 kg
[~2025-03-07 09:33] MED LIST changes: +DOXY100C43 PO; +IBUP-1984 PO
[2025-03-07 09:39] VITALS: BP 119/74; PULSE 87; RESP 18; TEMP 98.8; O2SAT 99
--- NOTE | 2025-03-07 10:12 | RADIOLOGY REPORT ---
PROCEDURE: DI ELBOW,LIMITED (AP/LAT) 03/07/2025 09:58 AM TECHNIQUE: DI ELBOW,LIMITED (AP/LAT) INDICATION: ELBOW PAIN COMPARISON: None FINDINGS: Bones: No acute fracture or dislocation. Joint spaces are maintained. No elbow joint effusion. Soft tissues: Unremarkable. No radiopaque foreign body. IMPRESSION: 1. No acute osseous abnormality.
--- NOTE | 2025-03-07 10:12 | RADIOLOGY REPORT ---
PROCEDURE: DI WRIST, COMPLETE (3VW MIN) 03/07/2025 09:58 AM TECHNIQUE: DI WRIST, COMPLETE (3VW MIN) INDICATION: WRIST PAIN COMPARISON: DI WRIST, COMPLETE (3VW MIN) on DOS: 03/03/25, ELBOW, COMPLETE (3VW MIN) on DOS: 06/29/21 FINDINGS: Bones: A subcentimeter osseous density seen on dorsal aspect of the wrist. Joint spaces are maintained. Soft tissues: Moderate dorsal soft tissue swelling. No radiopaque foreign body. IMPRESSION: 1. Findings compatible with acute avulsion fracture of triquetrum.
--- NOTE | 2025-03-07 10:43 | Physician Documentation ---
History of Present Illness ~ Chief Complaint: Arm Pain Stated Complaint: ARM PAIN Time Seen by MD: 09:46 OK to notify your PCP?: Yes Primary Medical Doctor: NONE Source: old records Mode of Arrival: POV Exam Limitations: no limitations HPI This is a 34-year-old male who is coming in for a wound in his left wrist as well as a existing fracture in his left wrist. The patient states that is he fell off his skateboard about a week ago in his seen here where he was found to have a small triquetral avulsion fracture of the left wrist/hand. The patient then states he has taken and a custody and that has developed an abscess of the dorsum of the wrist. The patient has had you recent history of abscesses per his prior records. Tetanus within 5 years: Yes Medication Reconciliation Allergies: Coded Allergies: No Known Allergies (Unverified , 03/03/25) Scheduled Bisacodyl (Dulcolax), 4 TAB PO ONCE Doxycycline Monohydrate (Doxycycline Monohydrate), 100 MG PO BID Ibuprofen* (Motrin*), 400 MG PO Q6H Polyethylene Glycol 3350 (Miralax), 17 GM PO DAILY Scheduled PRN Ondansetron HCl (Ondansetron HCl), 1 TAB PO TID PRN for nausea/vomiting Past Medical History Past Medical History: *MUSCULOSKELETAL* Past Surgical History: no surgical history Alcohol Use: Occasionally Drug Use: marijuana, methamphetamine Lives with: Spouse Lives In: Homeless Occupation: unemployed Physical Exam Vital Signs: Temperature: 98.8, Source: Temporal, Heart Rate: 87, Respiratory Rate: 18, BP: 119/74, Pulse Oximetry: 99, Weight: 74.000 Oxygen Flow Rate: 0 Pulse Oximetry Reflects: adequate oxygenation General Appearance: alert, WD/WN, no apparent distress Wrist To inspection of the left wrist and hand there is edema of the dorsum of the hand extending down the digits and up to the distal aspect of the forearm. The patient has a pustule that has a proximally quarter-sized with the dorsum of the distal forearm just proximal to the radiocarpal joint. No circumferential erythema or edema. Cap refill less than 2 seconds and brisk in the digits of the left hand the patient is able to open and close the hand though he states it feels tight Progress Results/Orders Results/Orders Completed Orders - BESSIE MOORE Sulfamethox/Trimetho. Ds Tab (Septra Ds (03/07/25 10:35) Ibuprofen Tablet (Motrin Tablet) (03/07/25 10:35) Vital Signs 03/07/25 09:39 Temp 98.8 Pulse 87 Resp 18 B/P (MAP) 119/74 Pulse Ox 99 O2 Flow Rate 0 EKG/XRAY/CT/US/VASC/MRI Bone/Soft Tissue X-Ray (Ext.) : Additional Comment X-ray left wrist three-view interpreted by me: Redemonstration of the triquetral avulsion fracture. Soft tissue edema overlying the distal forearm and wrist. No dislocation. Medical Decision Making Additional information obtaine: old records Findings The patient has not abscess of the dorsum of the wrist. This is independent of the small avulsion fracture of the left hand. I offered incision and drainage out with the patient stated that he only wanted to oral antibiotics. I gave him p.o. Bactrim here and we will suggest Bactrim DS twice a day for 10 days with the correction I will suggest a daily wound care. Elevate the hand frequently. Return to the ER for any worsening or concerning symptoms General Diff Dx:Considerations: Include: Abrasion, Contusion, Fracture, Hematoma, Laceration, Malunion, Neurovascular injury, Open fracture, Sprain, Ulcer, Other Shoulder Diff Dx:Consideration: Include: AC separation, Adhesive capsulitis, Arthritis, Bicipital tendonitis, Calcific tendonitis, Cervical disc disease, Contusion, Dislocation, Fracture-humerus, Fracture-scapula, Fracture-clavicle, GB disease, Hematoma, Impingement syndrome, Myocardial infarction, Neurovascular injury, Open fracture-humerus, Open fracture-scapula, Open fracture-clavicle, Rotator cuff injury, SC dislocatoin, Sprain, Subacromial bursitis, Other Elbow Diff Dx:Considerations: Include: Abrasion, Arthritis, Contustion, DJD, Fracture-humerus, Fracture-radial head, Fracture-radius, Fracture-ulna, Gout, Hematoma, Laceration, Neurovascular injury, Olecranon bursitis, Open fracture, Osteomyelitis, Radial head subluxation, Rheumatoid arthritis, Septic, Sprain, Ulcer, Other Wrist Diff Dx:Considerations: Include: Abrasion, Arthritis, DJD, Gout, Rheumatoid, Septic, Carpal tunnel snydrome, Contusion, Dislocation, Fracture- carpal, Fracture-radius, Fracture-ulna, Ganglion, Laceration, Neurovascular injury, Open fracture, Strain, Other Hand Diff Dx:Considerations: Include: Abrasion, Arthritis, Contusion, DJD, Felon, Fracture-carpal, Fracture-metacarpal, Fracture-phalynx, Fracture-radius, Fracture-ulna, Gout, Hematoma, Herpetic lorri, Laceration, Neurovascular injury, Open fracture, Paronychia, Rheumatoid arthritis, Septic, Sprain, Subungual hematoma, Tenosynovitis, Volar plate injury, Cellulitis, Malunion, Other Finger Diff Dx:Considerations: Include: Abrasion, Cellulitis, Contusion, Dislocation, Fracture, Hematoma, Laceration, Neurovascular injury, Open fracture, Subungual hematoma, Other Additional Comment Carpal fracture left wrist. Abscess left wrist. Rule out osteomyelitis Departure Disposition: 01 HOME / SELF CARE / HOMELESS Impression: Primary Impression: Triquetral chip fracture Additional Impression: Abscess Condition: Stable Discharge Instructions: Abscess, Care After, Avulsion Fracture of the Hand Additional Instructions: I suggest antibiotics to cover for staph aureus twice a day such as Bactrim DS or doxycycline in his well as daily wound care. Elevate the hand frequently to decrease swelling Referrals: NO PRIMARY CARE PROVIDER (PCP) Signature Scribe Signature: No scribe Attestation: The note accurately reflects work and decisions made by me.Bessie WHARTON 03/07/25 10:46 BESSIE MOORE Mar 07, 2025 10:42
[2025-03-07] MEDS: sulfamethoxazole/trimethoprim DS (800/160mg) tablet PO ONE (10:55)
== END 2025-03-07 11:09 ==
LOC: ER 09:34
DX: S52.122B Displaced fracture of head of left radius, initial encounter for open fracture type I or II (principal); L02.212 Cutaneous abscess of back [any part, except buttock and flank]; F12.90 Cannabis use, unspecified, uncomplicated; F15.90 Other stimulant use, unspecified, uncomplicated; Z79.899 Other long term (current) drug therapy; Z72.89 Other problems related to lifestyle; Z59.00 Homelessness unspecified; Z56.0 Unemployment, unspecified; V00.131A Fall from skateboard, initial encounter; Y93.89 Activity, other specified; Y92.89 Other specified places as the place of occurrence of the external cause; Y99.8 Other external cause status
CPT/HCPCS: 73070; 73110; 99284